=== PATIENT | female | born 1985 | race Caucasian/White ===

== ENCOUNTER 2021-09-25 19:39 | Emergency (ER) | payer OTHER, SELFPAY ==
[2021-09-25 20:13] VITALS: BP 147/92; PULSE 95; RESP 18; TEMP 36.2; O2SAT 99
[2021-09-25 23:54] LABS: Basophils Absolute Auto 0.1 K/mm3 (0.0-0.1); Basophils Percent Auto 0.5 % (0.2-1.2); Eosinophils Absolute Auto 0.2 K/mm3 (0-0.3); Eosinophils Percent Auto 2.3 % (0-4.4); Hemoglobin 15.2 g/dL (12.0-15.0); Immature Granulocyte Absolute 0.03 K/mm3 (0.00-0.031); Immature Granulocyte Percent A 0.3 % (0-0.5); Lymphocytes Absolute Auto 2.99 K/mm3 (0.9-3.2); Lymphocytes Percent Auto 28.4 % (18.3-44.2); Mean Corpuscular HGB Conc 33.8 g/dl (32-36); Mean Corpuscular Hemoglobin 30.2 pg (26-34); Mean Corpuscular Volume 89.3 fl (80-100); Mean Platelet Volume 10.7 fl (7.4-10.4); Monocytes Absolute Auto 0.4 K/mm3 (0.1-0.6); Neutrophils Absolute Auto 6.8 K/mm3 (1.3-6.7); Neutrophils Percent Auto 64.5 % (45.5-73.1); Platelet Count Result 224 k/mm3 (150-375); Red Blood Count 5.04 M/mm3 (4.2-5.4); Red Cell Distribution Width 13.2 % (11.5-14.5); White Blood Count 10.5 K/mm3 (4.5-10.0)
[2021-09-26 00:06] VITALS: BP 150/96; PULSE 93; RESP 17; TEMP 36.8; O2SAT 97
[2021-09-26 00:12] LABS: Alanine Aminotransferase 35 U/L (4-35); Albumin Level 4.1 g/dL (3.5-5.1); Alkaline Phosphatase 76 U/L (38-126); Anion Gap 8 mmol/L (8-16); Aspartate Amino Transferase 31 U/L (14-36); Bilirubin,Total 0.5 mg/dL (0.2-1.3); Blood Urea Nitrogen 7 mg/dL (7-17); Calcium 8.7 mg/dL (8.4-10.2); Carbon Dioxide 26 mmol/L (22-30); Chloride 102 mmol/L (98-107); Estimated CRCL calculation 139 ml/min; Estimated Glomerular Filt Rate > 60; Glucose 110 mg/dL (65-110); Potassium 3.6 mmol/L (3.4-5.0); Sodium 136 mmol/L (137-145)
[2021-09-26 00:30] VITALS: BP 145/88; PULSE 88; RESP 16; O2SAT 98
--- NOTE | 2021-09-26 00:37 | ED.FEMALEGU ---
HPI - Female Genitourinary General Chief complaint: Vaginal Bleeding Stated complaint: vaginal bleeding Time Seen by Provider: 09/25/21 23:39 Source: patient and RN notes reviewed Mode of arrival: ambulatory Limitations: no limitations History of Present Illness HPI Narrative: This is a 36 year old female with history of PCOS, irregular menses , and morbid obesity who presents for evaluation of heavy vaginal bleeding. She started this menstrual cycle 2 days ago. This morning she developed heavier vaginal bleeding, and she reports passing large clots. Her previous menstrual cycle was 2 months ago . She has history of going months without menstrual cycle. She had an episode of lightheadedness. She denies history of anemia or blood transfusion. She has only used 3 pads today. [place]. Related Data Allergies Allergy/AdvReac Type Severity Reaction Status Date / Time adhesive Allergy Unknown Rash Verified 09/26/21 00:08 Review of Systems Review of Systems: All systems reviewed & are unremarkable except as noted in HPI and below PMFSH Past Medical History Medical History (Updated 09/26/21 @ 01:26 by Deena Graves MD) Asthma History of PCOS Surgical History Surgical History (Updated 09/26/21 @ 00:41 by Deena Graves MD) No pertinent past surgical history Social History Social History (Updated 09/26/21 @ 00:41 by Deena Graves MD) Smoking status: Current every day smoker Exam Const: General: no acute distress and alert Nutritional Appearance: obese Orientation/consciousness: patient oriented x3 Eyes: EOM: EOMs intact bilaterally Resp: Effort & Inspection: normal respiratory effort and no retractions Auscultation: clear to auscultation bilaterally Cardio: Rate: regular rate Rhythm: regular rhythm Heart sounds: no murmurs GI: GI Palp: Yes Soft to palpation, No Tenderness to palpation present (GI) and No Guarding due to palpation present (GI) Auscultation: normal bowel sounds : Speculum Exam - Vagina: vaginal bleeding (mild bleeding in vault, no clots. Able to clear with no hemorrhaging afte) Speculum Exam - Cervix: Cervical os closed Skin: General skin exam: normal color Rashes: no rashes Neuro: General: patient oriented x3, moves all extremities and CN's II-XI intact bilaterally Psych: Mental Status: mental status grossly normal Affect: normal affect Course Reevaluation(s) Reevaluation #1: I Discussed with patient that she is no anemic. She does not appear to be bleeding heavily. She will follow up with floor installer regarding her bleeding. She is stable for discharge Date: 09/26/21 Time: 01:24 Vital Signs Vital signs: Vital Signs Temperature 97.2 F L 09/25/21 20:13 Pulse Rate 95 09/25/21 20:13 Respiratory Rate 18 09/25/21 20:13 Blood Pressure 147/92 H 09/25/21 20:13 Pulse Oximetry 99 09/25/21 20:13 Temperature 98.2 F 09/26/21 00:06 Pulse Rate 97 09/26/21 01:35 Respiratory Rate 27 H 09/26/21 01:35 Blood Pressure 135/91 H 09/26/21 01:35 Pulse Oximetry 99 09/26/21 01:35 MDM - Female Genitourinary Lab Data Attestation: I reviewed the patient's lab results. Result diagrams: 09/25/21 23:48 09/25/21 23:48 Labs: Lab Results 09/25/21 09/25/21 Range/Units 23:48 23:48 WBC 10.5 H (4.5-10.0) K/mm3 RBC 5.04 (4.2-5.4) M/mm3 Hgb 15.2 H (12.0-15.0) g/dL Hct 45.0 (37.0-47.0) % MCV 89.3 (80-100) fl MCH 30.2 (26-34) pg MCHC 33.8 (32-36) g/dl RDW 13.2 (11.5-14.5) % Plt Count 224 (150-375) k/mm3 MPV 10.7 H (7.4-10.4) fl Immature Gran % (Auto) 0.3 (0-0.5) % Neut % (Auto) 64.5 (45.5-73.1) % Lymph % (Auto) 28.4 (18.3-44.2) % [place] % (Auto) 4.0 (2.6-8.5) % Eos % (Auto) 2.3 (0-4.4) % Baso % (Auto) 0.5 (0.2-1.2) % Lymph # (Auto) 2.99 (0.9-3.2) K/mm3 [place] # (Auto) 0.4 (0.1-0.6) K/mm3 Eos # (Auto) 0.2 (0-0.3) K/mm3 Baso #
[2021-09-26 01:35] VITALS: BP 135/91; PULSE 97; RESP 27; O2SAT 99
== END 2021-09-26 01:37 | disposition home or self-care (01) ==
PROVIDERS: Emergency Medicine; Emergency Provider General Practice; PCP Nurse Practitioner Family
DX: N92.1 Excessive and frequent menstruation with irregular cycle (principal); E66.01 Morbid (severe) obesity due to excess calories; Z68.42 Body mass index [BMI] 45.0-49.9, adult; E28.2 Polycystic ovarian syndrome; J45.909 Unspecified asthma, uncomplicated; F17.200 Nicotine dependence, unspecified, uncomplicated
CPT/HCPCS: 36415; 80053; 81025; 85025; 99283

== ENCOUNTER 2021-09-26 11:58 | Outpatient (CLI) | payer OTHER, SELFPAY ==
--- NOTE | ~2021-09-26 | US_ITS ---
EXAMINATION: US pelvic complete w TV DATE: 09/26/2021 12:38 INDICATION: Heavy menstrual periods, polycystic ovarian syndrome TECHNIQUE: Multiple transabdominal and endovaginal sonographic images of the pelvis were obtained. COMPARISON: None. FINDINGS: The uterus measures 10.7 x 3.6 x 4.2 cm. The endometrial complex measures 13 mm. Nabothian cysts are noted in the cervix. The right ovary is not visualized however no right adnexal abnormality is seen. The left ovary measures 2.3 x 2.9 x 2.2 cm. There is normal vascular flow in the left ovary . There is no free fluid in the pelvis. IMPRESSION: 1. No sonographic correlate for the patient's symptoms. Reviewed, dictated and finalized at location A. REPAIRER
== END 2021-09-26 11:59 | disposition home or self-care (01) ==
LOC: ANHIMG 12:03
PROVIDERS: PCP Nurse Practitioner Family
DX: N92.0 Excessive and frequent menstruation with regular cycle (principal)
CPT/HCPCS: 76830; 76856

== ENCOUNTER 2022-11-15 07:03 | Emergency (ER) | payer OTHER, SELFPAY ==
--- NOTE | ~2022-11-15 | XR_ITS ---
XR shoulder LT min 2V 11/15/2022 07:46 INDICATION: Left shoulder pain after trauma PROCEDURE: 4 views left shoulder COMPARISON: No prior studies for comparison. FINDINGS: Fracture, dislocation or subluxation is not identified. The soft tissues appear within norm al limits. No foreign bodies are identified. IMPRESSION: 1: NO ACUTE BONE OR JOINT ABNORMALITY IDENTIFIED. Reviewed, dictated and finalized at location A. USION DIE REPAIR MANAGER
--- NOTE | ~2022-11-15 | XR_ITS ---
XR knee LT min 4V 11/15/2022 07:47 Indication: Left knee pain. Procedure: 4 views left knee Comparison: No prior studies for comparison. Findings: There is mild osteoarthritis of the left knee. No fracture, subluxation or dislocation. No significant joint effusion. No foreign bodies. Impression: 1: No acute bone or joint abnormality. Reviewed, dictated and finalized at location A. HAND SPONGE BOAT Impression: 1: No acute bone or joint abnormality.
[2022-11-15 07:08] VITALS: BP 176/116; PULSE 107; RESP 18; TEMP 36.2; O2SAT 97
--- NOTE | 2022-11-15 07:27 | ED.FALL ---
HPI - Fall General Chief Complaint: Fall Stated Complaint: left knee, slipped on ice Time Seen by Provider: 11/15/22 07:19 History of Present Illness HPI Narrative: Patient is a 37-year-old female who presents ER after slip and fall. She was leaving her home when she slipped striking her left knee on the ground while her right leg went out forward. She then fell onto her buttocks and then onto her shoulder. She has pain in her left shoulder and over the left kneecap. She is ambulatory. No numbness or tingling. She did not strike her head or lose consciousness. Related Data Allergies Allergy/AdvReac Type Severity Reaction Status Date / Time adhesive Allergy Unknown Rash Verified 11/15/22 07:04 Review of Systems Musculoskeletal: Musculoskeletal: Denies myalgias, Reports arthralgias and Denies joint swelling Integumentary/Breasts: Skin/Breast: Denies erythema and Denies rash Neurologic: Denies syncope, Denies focal weakness and Denies numbness PMFSH Past Medical History Medical History (Updated 11/15/22 @ 08:30 by Sha German MD) Asthma History of PCOS Surgical History Surgical History (Updated 11/15/22 @ 07:38 by Sha German MD) H/O oophorectomy Social History Social History (Updated 09/26/21 @ 00:41 by Deena Graves MD) Smoking status: Current every day smoker Exam Narrative: GENERAL: Well-appearing, well-nourished, and in no acute distress. HEAD: Normocephalic, atraumatic. ENT: Mucous membranes moist. CHEST: Clear to auscultation. No respiratory distress. HEART: Regular rate and rhythm. Normal peripheral pulses. EXTREMITIES: Palpation over the left patella without bruising or swelling. Ligamentously intact in the left knee. Normal flexion and extension. Left shoulder with normal range of motion with tenderness over the acromioclavicular process. SKIN: Warm, dry, no rash. NEURO: Alert and oriented x3. PSYCH: Normal mood and affect. Course Course Emergency Course: No fracture. Patient likely experiencing just some superficial contusion contusion/achiness related to fall. Discharge home. Recommend NSAIDs. Vital Signs Vital signs: Vital Signs Temperature 97.2 F L 11/15/22 07:08 Pulse Rate 107 H 11/15/22 07:08 Respiratory Rate 18 11/15/22 07:08 Blood Pressure 176/116 H 11/15/22 07:08 Pulse Oximetry 97 11/15/22 07:08 Temperature 97.2 F L 11/15/22 07:08 Pulse Rate 107 H 11/15/22 07:08 Respiratory Rate 18 11/15/22 07:08 Blood Pressure 176/116 H 11/15/22 07:08 Pulse Oximetry 97 11/15/22 07:08 MDM - Fall Imaging Data Radiologist's impression: ITS Impressions Shoulder X-Ray 11/15/22 07:48 IMPRESSION: 1: NO ACUTE BONE OR JOINT ABNORMALITY IDENTIFIED. Knee X-Ray 11/15/22 07:52 Impression: 1: No acute bone or joint abnormality. Discharge Plan Discharge Clinical Impression: Acute shoulder pain, Anterior knee pain Patient Disposition: Home, Self-Care Condition: Stable Instructions: Knee Pain (ED), Shoulder Pain (ED) Additional Instructions: You have some body aches related to your fall. There is no evidence of acute bony injury. Return the ER if you suffer new injury, you have chest pain or shortness of breath, you have additional concerns. Take Tylenol or ibuprofen as needed for pain. Prescriptions: New ibuprofen 600 mg tablet 600 mg PO TID Qty: 20 0RF Follow-up/Referrals: Jelly,Shana ICING MAKER [Primary Care Provider] - 1 Week Stand Alone Forms: Work/School Release IP
[2022-11-15 08:38] VITALS: BP 156/76; PULSE 95; RESP 20; O2SAT 100
== END 2022-11-15 08:45 | disposition home or self-care (01) ==
LOC: ANHED 08:37
PROVIDERS: Emergency Provider Emergency Medicine
DX: S49.92XA Unspecified injury of left shoulder and upper arm, initial encounter (principal); S89.92XA Unspecified injury of left lower leg, initial encounter; W01.0XXA Fall on same level from slipping, tripping and stumbling without subsequent striking against object, initial encounter
CPT/HCPCS: 73030; 73564; 99284

== ENCOUNTER 2024-01-29 00:15 | Emergency (ER) | payer OTHER, SELFPAY ==
[2024-01-29 00:18] VITALS: BP 146/106; PULSE 112; RESP 15; TEMP 36.8; O2SAT 96
--- NOTE | 2024-01-29 01:23 | ED.ANIMALBIT ---
HPI - Animal Bite General Chief Complaint: Animal Bite Stated Complaint: dog bite Time Seen by Provider: 01/29/24 00:16 Source: patient Mode of arrival: ambulatory Limitations: no limitations History of Present Illness HPI narrative: This is a 38-year-old female who presents to the ED with chief complaint of scattered dog bite wounds after breaking up dog fight tonight. Reports that her loose dog tried to attack their new puppy. Reports she got in the middle of it and suffered multiple wounds to the thighs, right wrist. Reports bleeding controlled. Reports tetanus status of today. Denies any further site of injury Related Data Allergies Allergy/AdvReac Type Severity Reaction Status Date / Time adhesive Allergy Unknown Rash Verified 11/15/22 07:04 Review of Systems Review of Systems: All systems as dictated in [facility] Past Medical History Medical History (Updated 01/29/24 @ 01:25 by Memo Johnson PA-C) Asthma History of PCOS Surgical History Surgical History (Updated 11/15/22 @ 07:38 by Sha German MD) H/O oophorectomy Social History Social History (Updated 09/26/21 @ 00:41 by Deena Graves MD) Smoking status: Current every day smoker Exam Narrative: GENERAL: Well-appearing, well-nourished, and in no acute distress. HEAD: Normocephalic, atraumatic. EYES: PERRLA and EOMI. ENT: Nares clear, no rhinorrhea or epistaxis. Mucous membranes moist. Oropharynx without tonsillar hypertrophy exudate or other lesions. NECK: Supple. No adenopathy or masses. CHEST: No respiratory distress. Clear to auscultation. No wheezes rales or rhonchi HEART: Regular rate and rhythm. No murmur heard. Normal peripheral pulses. ABDOMEN: Soft, nontender, nondistended, normal active bowel sounds. MSK: Normal range of motion. No edema. SKIN: Several scattered puncture wound bite choi to the right wrist dorsal and volar. Also some scattered wounds to the bilateral medial thighs. One wound to the mons pubis. NEURO: Alert and oriented x3. No focal deficits. PSYCH: Normal mood and affect. Course Vital Signs Vital signs: Vital Signs Temperature 98.3 F 01/29/24 00:18 Pulse Rate 112 H 01/29/24 00:18 Respiratory Rate 15 01/29/24 00:18 Blood Pressure 146/106 H 01/29/24 00:18 Pulse Oximetry 96 01/29/24 00:18 Oxygen Delivery Room Air 01/29/24 00:18 Temperature 98.3 F 01/29/24 00:18 Pulse Rate 97 01/29/24 01:37 Respiratory Rate 16 01/29/24 01:37 Blood Pressure 128/64 01/29/24 01:37 Pulse Oximetry 97 01/29/24 01:37 Oxygen Delivery Room Air 01/29/24 00:18 MDM - Animal Bite MDM Narrative Medical decision making narrative: This is a 38-year-old female who presents to the ED with chief complaint of dog bite injuries that occurred earlier this evening. Vitals are normal. Exam shows multiple by Loyd puncture wounds to the right wrist and bilateral thighs. The wounds were all cleansed and irrigated here. Closed loosely with Steri-Strips. Rx for Augmentin given. Tetanus status up today. Pt will be discharged in stable condition. Return precautions given and supportive measures discussed. Pt is understanding and agreeable with plan for discharge and follow-up with PCP. Discharge Plan Discharge Clinical Impression: Dog bite Patient Disposition: Home, Self-Care Condition: Stable Instructions: Antibiotic Form, Animal Bite (ED) Additional Instructions: Please take antibiotics through the full course for the dog bites. Watch the area for any signs of infection. If you have any new or worsening symptoms please return to the ER for further evaluation. Prescriptions: New amoxicillin-pot clavulanate 875-125 mg tablet 1 tablet PO Q12H Qty: 14 0RF No Action ibuprofen 600 mg tablet 600 mg PO TID Qty: 20 0RF Follow-up/Referrals: UNKNOWN,DOCTOR [Primary Care Provider] - Time of Disposition: 01:25
[2024-01-29 01:37] VITALS: BP 128/64; PULSE 97; RESP 16; O2SAT 97
== END 2024-01-29 01:39 | disposition home or self-care (01) ==
PROVIDERS: Emergency Provider Physician Assistant
DX: S61.551A Open bite of right wrist, initial encounter (principal); S71.152A Open bite, left thigh, initial encounter; S71.151A Open bite, right thigh, initial encounter; J45.909 Unspecified asthma, uncomplicated; E28.2 Polycystic ovarian syndrome; F17.200 Nicotine dependence, unspecified, uncomplicated; W54.0XXA Bitten by dog, initial encounter
CPT/HCPCS: 99283

== ENCOUNTER 2024-03-10 19:47 | Emergency (ER) | payer OTHER, SELFPAY ==
--- NOTE | ~2024-03-10 | CT_ITS ---
EXAMINATION: CT lumbar spine wo con DATE: 03/10/2024 22:12 INDICATION: Low back pain radiating down the left leg TECHNIQUE: Computed tomography (CT) of the lumbar spine was performed without intravenous contrast. A utomated exposure control and iterative reconstruction technique were employed. The dose-length produ ct was 1364.27 mGy-cm. COMPARISON: None FINDINGS: Alignment is normal. Chronic appearing minimal likely physiologic anterior wedging at T12 and L1. Mod erate disc height loss at T12-L1, mild to moderate disc height loss at L1-L2 and mild disc height los s at L3-L4. Congenitally small lumbar central canal with short pedicles throughout. Paravertebral sof t tissues are unremarkable. Mild bilateral sacroiliac osteoarthritis. The following disc levels are s pecifically discussed: T11-T12: Small right foraminal zone disc protrusion with minimal peripheral calcification. There is a ltered left and moderate right facet joint osteoarthritis. There is mild right neural foraminal steno sis. There is no central canal stenosis. T12-L1: The disc does not extend beyond the endplate margin. There is moderate bilateral facet joint osteoarthritis. There is no neural foraminal stenosis. There is no central canal stenosis. L1-L2: Disc is mildly bulging. There is moderate bilateral facet joint osteoarthritis. There is mild right neural foraminal stenosis. There is mild central canal stenosis. L2-L3: Disc is mildly bulging. There is moderate bilateral facet joint osteoarthritis. There is mild right neural foraminal stenosis. There is moderate central canal stenosis. L3-L4: Disc is bulging. There is mild bilateral facet joint osteoarthritis. There is mild to moderate bilateral neural foraminal stenosis. There is moderate to severe central canal stenosis. L4-L5: Disc is mildly bulging. There is severe bilateral facet joint osteoarthritis. There is mild ri ght and moderate left neural foraminal stenosis. There is mild central canal stenosis. L5-S1: Disc is mildly bulging. There is moderate bilateral facet joint osteoarthritis. There is mild right neural foraminal stenosis. There is no central canal stenosis. IMPRESSION: 1. Mild to moderate lumbar spondylosis which together with a congenitally small lumbar central canal contributes to multilevel central canal stenosis moderate at L2-L3 and moderate to severe at L3-L4. Reviewed, dictated and finalized at location A.
[2024-03-10 19:53] VITALS: BP 155/98; PULSE 79; RESP 20; TEMP 36.7; O2SAT 94
[2024-03-10] MEDS: diazePAM INJ (*CRX) 10 MG/2 ML SYRINGE 5 MG IM (21:47)
[2024-03-10] MEDS: ACETAMINOPHEN 500 MG TABLET 1000 MG PO (21:47)
--- NOTE | 2024-03-10 21:51 | ED.BACK ---
HPI - Back Pain/Injury General Chief Complaint: Back Pain/Injury Stated Complaint: Lower back pain, left leg pain Time Seen by Provider: 03/10/24 20:54 Source: patient Mode of arrival: ambulatory Limitations: no limitations History of Present Illness HPI Narrative: This is a 38 year old female that presents to the ER for low back pain. Ongoing over the last 4 days. Reports radiation into her left leg. No recent injury or trauma. The pain is worse with movement and relieved with rest. She has been taking Tylenol with little relief. Denies saddle anesthesia or bowel/bladder incontinence. Related Data Allergies Allergy/AdvReac Type Severity Reaction Status Date / Time adhesive Allergy Unknown Rash Verified 03/10/24 19:56 Review of Systems Review of Systems: CONSTITUTIONAL: Denies fever MUSCULOSKELETAL: Reports back pain, joint pain, and myalgia. NEUROLOGIC: Denies numbness, or weakness. All systems reviewed & are unremarkable except as noted in HPI and below PMFSH Past Medical History Medical History (Updated 03/11/24 @ 00:00 by Alyson Damon) Asthma History of PCOS Surgical History Surgical History (Updated 11/15/22 @ 07:38 by Sha German MD) H/O oophorectomy Social History Social History (Updated 09/26/21 @ 00:41 by Deena Graves MD) Smoking status: Current every day smoker Exam Narrative: GENERAL: Well-appearing, well-nourished, and in no acute distress. HEAD: Normocephalic, atraumatic. EYES: EOMI. CHEST: Clear to auscultation. No respiratory distress. No wheezes rales or rhonchi HEART: Regular rate and rhythm. No murmur heard. Normal peripheral pulses. BACK: No midline spinal tenderness EXTREMITIES: Normal range of motion. No edema. Strength equal in bilateral lower extremities (5/5) SKIN: Warm, dry, no rash. NEURO: No focal deficits. Alert and oriented x3. PSYCH: Normal mood and affect Course Course Emergency Course: Patient updated on workup and agrees with plan of care Vital Signs Vital signs: Vital Signs Temperature 98.0 F 03/10/24 19:53 Pulse Rate 79 03/10/24 19:53 Respiratory Rate 20 03/10/24 19:53 Blood Pressure 155/98 H 03/10/24 19:53 Pulse Oximetry 94 03/10/24 19:53 Oxygen Delivery Room Air 03/10/24 19:53 Temperature 98 F 03/10/24 22:39 Pulse Rate 89 03/10/24 22:39 Respiratory Rate 20 03/10/24 22:39 Blood Pressure 150/88 H 03/10/24 22:39 Pulse Oximetry 98 03/10/24 22:39 Oxygen Delivery Room Air 03/10/24 19:53 MDM - Back Pain/Injury MDM Narrative Medical decision making narrative: Patient presents to the ER for low back pain ongoing over the last couple of days. She is afebrile and nontoxic appearing. Her vitals are stable. She is neurologically intact. No recent injuries or trauma. CT lumbar spine shows mild to moderate lumbar spondylosis. Patient updated on her workup and agrees with plan of care. Is to follow up with primary provider. Will be given follow-up with surgery if needed Differential Diagnosis Differential diagnosis: Likely lumbar radiculopathy, sciatica and strain of lumbar region Lab Data Attestation: I reviewed the patient's lab results. Labs: UCG Bedside Result Negative Reference Range: Negative Imaging Data Radiologist's impression: ITS Impressions Lumbar Spine CT 03/10/24 22:32 IMPRESSION: 1. Mild to moderate lumbar spondylosis which together with a congenitally small lumbar central canal contributes to multilevel central canal stenosis moderate at L2-L3 and moderate to severe at L3-L4. Critical Care Time Critical Care Time Critical Care Time: No Discharge Plan Discharge Clinical Impression: Lumbar radiculopathy Patient Disposition: Home, Self-Care Condition: Stable Instructions: Lumbar Radiculopathy (ED) Additional Instructions: Return to the ER if you experience weakness,
[2024-03-10] MEDS: diphenhydrAMINE HCl CAP 25 MG CAPSULE PO (22:37)
--- NOTE | 2024-03-10 22:38 | PC.NURSE ---
Pt c/o itching, redness to skin. No hives noted. Amanda FIGUEROA informed and orders received.
[2024-03-10 22:39] VITALS: BP 150/88; PULSE 89; RESP 20; TEMP 36.6; O2SAT 98
--- NOTE | 2024-03-10 22:49 | PC.NURSE ---
RN report from Brenna
[2024-03-10] MEDS: KETOROLAC 30 MG/ML VIAL (*BKC) IM (23:14)
[2024-03-10 23:50] VITALS: PULSE 72; RESP 16; O2SAT 98
== END 2024-03-10 23:52 | disposition home or self-care (01) ==
PROVIDERS: Emergency Provider Physician Assistant
DX: M47.26 Other spondylosis with radiculopathy, lumbar region (principal); E28.2 Polycystic ovarian syndrome; J45.909 Unspecified asthma, uncomplicated; F17.210 Nicotine dependence, cigarettes, uncomplicated
CPT/HCPCS: 72131; 81025; 96372; 99284; A9270; J1885; J3360